=== PATIENT | male | born 1945 | race Caucasian/White ===

== ENCOUNTER 2017-03-21 14:24 | Emergency (ER) | payer MEDICARE ==
[~2017-03-21] VITALS: Ht 182.9 cm; Wt 88.8 kg
[~2017-03-21 14:24] MED LIST: MOEX15TA2 PO; PHEN100C PO; SIMV20TA3 PO; VANC1VIA3 PO
[2017-03-21] MEDS ORDERED: SODIUM CHLORIDE 0.9% 1,000 ML IV ONE (14:48)
[2017-03-21] MEDS ORDERED: KETOROLAC 30 MG/1 ML IVPush ONE (15:00)
[2017-03-21] MEDS ORDERED: SODIUM CHLORIDE FLUSH 10ML SYR IVF ONE (15:00)
[2017-03-21 15:20] LABS: BLOOD UREA NITROGEN 20 mg/dL (7-18)
[2017-03-21] MEDS ORDERED: KETOROLAC 30 MG/1 ML ONE (15:28)
[2017-03-21] MEDS ORDERED: SODIUM CHLORIDE 0.9%, 500ML IVBOLUS ONE (15:30)
[2017-03-21] MEDS ORDERED: DEXAMETHASONE 4 MG/ML, 5ML ONE (16:51)
[2017-03-21] MEDS ORDERED: DEXAMETHASONE 4 MG/ML, 1ML IVPush ONE (17:00)
[2017-03-21 17:16] VITALS: BP 138/71
== END 2017-03-21 17:18 | disposition home or self-care (01) ==
LOC: ED 16:27
DX: K11.21 Acute sialoadenitis (principal); I10 Essential (primary) hypertension; E78.00 Pure hypercholesterolemia, unspecified; G40.909 Epilepsy, unspecified, not intractable, without status epilepticus; E78.5 Hyperlipidemia, unspecified; Z85.46 Personal history of malignant neoplasm of prostate
CPT/HCPCS: 36415; 70490; 80048; 82040; 85025; 93005; 96361; 96374; 96375; 99285; J1100; J1885; J7030; J7040

== ENCOUNTER 2018-10-19 07:17 | Outpatient (CLI) | payer MEDICARE | END 2018-10-19 23:59 | disposition home or self-care (01) | LOC: RAD 07:17 | PROVIDERS: ATTEND Family Medicine | DX: I67.82 Cerebral ischemia (principal); I63.9 Cerebral infarction, unspecified; G93.89 Other specified disorders of brain; M79.662 Pain in left lower leg | CPT/HCPCS: 70551 ==

== ENCOUNTER → 2018-10-28 | Outpatient (CLI) | payer MEDICARE | END | disposition home or self-care (01) | LOC: CVU 06:42 | PROVIDERS: ATTEND Family Medicine | DX: M79.662 Pain in left lower leg (principal); R20.2 Paresthesia of skin; R20.0 Anesthesia of skin; I10 Essential (primary) hypertension; E78.5 Hyperlipidemia, unspecified; C61 Malignant neoplasm of prostate | CPT/HCPCS: 93922 ==

== ENCOUNTER 2018-12-28 11:48 | Emergency (ER) | payer MEDICARE ==
[~2018-12-28] VITALS: Ht 182.9 cm; Wt 87.0 kg
[2018-12-28 11:50] VITALS: BP 147/90
== END 2018-12-28 13:03 | disposition left against medical advice (07) ==
LOC: ED 12:57
DX: R42 Dizziness and giddiness (principal); Z53.21 Procedure and treatment not carried out due to patient leaving prior to being seen by health care provider

== ENCOUNTER 2019-02-02 08:42 | Outpatient (CLI) | payer MEDICARE ==
[2019-02-02] MEDS ORDERED: OMNIPAQUE 350 MG/ML, 100ML BOTTLE ONE (14:14)
== END 2019-02-02 23:59 | disposition home or self-care (01) ==
LOC: CFH 08:42
PROVIDERS: ATTEND Psychiatry & Neurology Neurology
DX: I65.23 Occlusion and stenosis of bilateral carotid arteries (principal); I67.2 Cerebral atherosclerosis; M50.322 Other cervical disc degeneration at C5-C6 level
CPT/HCPCS: 70496; 70498; 82565; Q9967

== ENCOUNTER 2019-08-11 05:45 | Observation (INO) | payer MEDICARE ==
[~2019-08-11] VITALS: Ht 185.4 cm; Wt 88.2 kg
[2019-08-11] MEDS ORDERED: MORPHINE SULFATE 4 MG/ML, 1ML ONE ×2 (06:26→09:33)
[2019-08-11] MEDS ORDERED: ONDANSETRON 2MG/ML, 2ML ONE (06:26)
[2019-08-11] MEDS ORDERED: ONDANSETRON 2MG/ML, 2ML IVPush ONE (06:30)
--- NOTE | 2019-08-11 06:46 | NUR ---
CT DELAY, NEED PAIN MED.
[2019-08-11] MEDS: MORPHINE SULFATE 4 MG/ML, 1ML IVPush PRN ×2 (06:54→09:37)
--- NOTE | 2019-08-11 06:59 | NUR ---
PT. MEDICATED PER MAR. MONITORS IN PLACE. CALL LIGHT IN REACH. AT BS. BS REPORT OT PAKO MAYEN.
--- NOTE | 2019-08-11 07:08 | NUR ---
CALLED CT TO INFORM THEM THAT PT. IS READY FOR CT.
--- NOTE | 2019-08-11 07:15 | NUR ---
ASSUMED CARE OF PT, PT WITH NO NEEDS REPORTED AT THIS TIME, VSS. Addendum: 08/11/19 at 0736 by JANNETH CALL TO IMAGING FROM NOC RN, PT TO GO TO CT
--- NOTE | 2019-08-11 07:57 | NUR ---
PT RETURNED FROM IMAGING, RESULTS BACK ERMD UPDATED LABS ARE STILL PENDING, PT GIVEN WATER PER REQUEST AFTER OK OF
[2019-08-11 07:58] LABS: BASOPHILS # (AUTO) 0.04 x10^3/uL (0-0.1); BASOPHILS % (AUTO) 1 % (0-1); EOSINOPHILS # (AUTO) 0.12 x10^3/uL (0-0.4); EOSINOPHILS % (AUTO) 1 % (1-7); LYMPHOCYTES # (AUTO) 0.93 x10^3/uL (1-3.4); LYMPHOCYTES % (AUTO) 12 % (22-44); MD NO; MEAN CORPUSCULAR HEMOGLOBIN 32.4 pg (27.5-34.5); MEAN CORPUSCULAR HGB CONC 33.1 g/dL (33.2-36.2); MEAN CORPUSCULAR VOLUME 97.8 fL (81-97); MEAN PLATELET VOLUME 8.3 fL (7.4-10.4); MONOCYTES # (AUTO) 0.57 x10^3/uL (0.2-0.8); MONOCYTES % (AUTO) 7 % (2-9); NEUTROPHILS # (AUTO) 6.34 x10^3/uL (1.8-6.8); NEUTROPHILS % (AUTO) 79 % (42-75); PLATELET COUNT 209 x10^3/uL (130-400); RED BLOOD COUNT 4.35 x10^6/uL (4.38-5.82)
[2019-08-11 08:08] LABS: ALANINE AMINOTRANSFERASE 17 U/L (12-78); ALBUMIN 3.9 g/dL (3.4-5.0); ANION GAP 5 mmol/L (5-15); CALCIUM 8.8 mg/dL (8.5-10.1); CHLORIDE 111 mmol/L (98-107)
[2019-08-11 08:11] LABS: ALKALINE PHOSPHATASE 122 U/L (45-117); BILIRUBIN,TOTAL 0.3 mg/dL (0.2-1.0); TOTAL PROTEIN 7.5 g/dL (6.4-8.2)
[2019-08-11] MEDS ORDERED: methylPREDNISolone SOD SUCC 125 MG/2 ML IVPush ONE (08:30)
[2019-08-11] MEDS ORDERED: methylPREDNISolone SOD SUCC 125 MG/2 ML ONE (08:30)
--- NOTE | 2019-08-11 09:07 | NUR ---
PSA ATTEMPTED TO ROADTEST PT, PT BEGAN TO LOG ROLL OUT OF BED AND C/O PAIN SHOOTING DOWN HIS HIP, WILL ATTEMPT IN ANOTHER 10MIN. ERMD UPDATED
--- NOTE | 2019-08-11 09:39 | NUR ---
PT MEDICATED WITH SECOND DOSE OF MORPHINE, SECOND TRIAL AT [facility] PT ABLE TO WITH COACHING ABLE TO GET OUT OF [facility], WALKS STEADY WITH FWW. ERMD UPDATED
--- NOTE | 2019-08-11 11:30 | NUR ---
PT CONCERNED THAT IF THEY ARE DISCHARGED SHE WILL FIND HER CRAWLING ON HANDS AND KNEES BECAUSE HIS PAIN HAS NOT BEEN RELEIVED, PT STATES HE DOES NOT WISH TO BE ADMITTED AND WOULD LIKE TO F/U WITH OUTPT SPINE MD. XOCHITL UPDATED ON STATUS
[2019-08-11] MEDS ORDERED: DEXTROSE 50%, 50ML SYRINGE IVPush ONE (12:00)
--- NOTE | 2019-08-11 12:18 | NUR ---
PT TO BE ADMITTED, AWAITING BED PLACEMENT.
[2019-08-11] MEDS ORDERED: BACLOFEN 10 MG TABLET PO PRN (13:00)
[2019-08-11] MEDS ORDERED: ONDANSETRON 2MG/ML, 2ML IVPush PRN (13:00)
[2019-08-11] MEDS ORDERED: ONDANSETRON ODT 4 MG PO PRN (13:00)
[2019-08-11] MEDS ORDERED: morphine SULFATE 10 MG/ML, 1ML IVPush PRN (13:00)
[2019-08-11] MEDS ORDERED: hydrALAzine 20 MG/ML, 1ML IVPush PRN (13:00)
[2019-08-11] MEDS ORDERED: NAPROXEN 250 MG TABLET PO SCH (13:00)
[2019-08-11] MEDS ORDERED: SIMVASTATIN 20 MG TABLET PO PRN (13:00)
[2019-08-11] MEDS ORDERED: ACETAMINOPHEN 325 MG TABLET PO PRN (13:00)
--- NOTE | 2019-08-11 13:00 | NUR ---
PT AMBULATED TO BR WITH FWW WITH SBA. BACK TO [facility], LUNCH TRAY ORDERED
[2019-08-11] MEDS ORDERED: LIDOCAINE-MPF 1%, 5ML ONE (13:48)
--- NOTE | 2019-08-11 13:50 | NUR ---
PT GIVEN LUNCH MEAL TRAY, VSS, NAD NOTED
--- NOTE | 2019-08-11 13:56 | NUR ---
REQUEST FOR MEDICATIONS SENT TO PHARMACY
[2019-08-11] MEDS ORDERED: LIDOCAINE 1%, 10ML INFIL ONE (14:00)
--- NOTE | 2019-08-11 14:00 | NUR ---
AT BEDSIDE PERFORMING TARGETED NERVE INJECTION WITH LIDOCAINE
[2019-08-11] MEDS: SODIUM CHLORIDE 0.9% 1,000 ML IV SCH ×2 (14:33→21:47)
[2019-08-11] MEDS: GABAPENTIN 100 MG CAPSULE PO SCH ×3 (14:33→21:00)
[2019-08-11] MEDS: LIDODERM 5% PATCH TD SCH ×2 (14:33→21:44)
--- NOTE | 2019-08-11 14:34 | NUR ---
BREAK RN FOR PRIMARY RN FAHEEM. PT MEDICATED NOTED PER MD ORDER WITH IVF. PT DENIES ANY PAIN, "THE DOCTOR JUST GAVE ME SOME LIDOCAINE INJECTIONS INTO MY HIP AND I'M FEELING GREAT, PAIN FREE." PT REFUSED GABAPENTIN AND LIDODERM PATCH "I DON'T NEED THEM RIGHT NOW, I WILL LET YOU KNOW IF I DO, I DON'T LIKE GABAPENTIN ANYWAYS." VSS. CALL LIGHT IN REACH. FALL PRECAUTIONS IN PLACE. SIDE RAILS UPX2. SPOUSE AT BEDSIDE. DENIES NEED TO USE RESTROOM.
--- NOTE | 2019-08-11 14:52 | NUR ---
BEDSIDE REPORT AND CARE BACK TO PRIMARY PAKO MAYEN
--- NOTE | 2019-08-11 15:46 | NUR ---
PT AMBULATING IN [place] WITH FWW C PER PT REQUEST
[2019-08-11] MEDS: METHYL SALICYLATE/MENTHOL CRM 85GM TP SCH ×2 (16:00→21:24)
--- NOTE | 2019-08-11 16:31 | NUR ---
REPORT CALLED TO RECIEVING RN
[2019-08-11] MEDS ORDERED: ENOXAPARIN 40 MG/0.4 ML SQ SCH (19:00)
[2019-08-11] MEDS: HEPARIN 5,000 UNITS/ML, 1ML SQ SCH (21:00)
[2019-08-11] MEDS ORDERED: MOEXIPRIL HCL 15 MG PO SCH (21:00)
[2019-08-11] MEDS: PHENYTOIN 100 MG CAPSULE HOMEMEDPO SCH (21:24)
[2019-08-11 21:37] VITALS: BP 170/85
[2019-08-12 03:40] VITALS: BP 133/89
[2019-08-12] MEDS: HEPARIN 5,000 UNITS/ML, 1ML SQ SCH ×3 (05:00→21:53)
[2019-08-12] MEDS: GABAPENTIN 100 MG CAPSULE PO SCH ×4 (06:00→21:53)
[2019-08-12] MEDS: SODIUM CHLORIDE 0.9% 1,000 ML IV SCH ×3 (06:09→22:00)
[2019-08-12 06:18] LABS: ANION GAP 7 mmol/L (5-15); CALCIUM 8.4 mg/dL (8.5-10.1); CHLORIDE 112 mmol/L (98-107); CREATININE 1.49 mg/dL (0.7-1.3)
[2019-08-12 08:45] LABS: MICROSCOPIC NOT IND
[2019-08-12 08:49] LABS: CULTURE INDICATED? NO
[2019-08-12] MEDS: METHYL SALICYLATE/MENTHOL CRM 85GM TP SCH ×3 (09:00→21:56)
[2019-08-12] MEDS: PHENYTOIN 100 MG CAPSULE HOMEMEDPO SCH ×2 (09:28→21:00)
[2019-08-12] MEDS: LIDODERM REMOVE PATCH NOTE XX SCH (09:32)
[2019-08-12 10:16] VITALS: BP 108/66
[2019-08-12 15:05] VITALS: BP 123/72
[2019-08-12 18:30] VITALS: BP 131/78
[2019-08-13 03:55] VITALS: BP 116/75
[2019-08-13] MEDS: HEPARIN 5,000 UNITS/ML, 1ML SQ SCH (05:25)
[2019-08-13] MEDS: GABAPENTIN 100 MG CAPSULE PO SCH (05:25)
[2019-08-13 05:32] LABS: ANION GAP 8 mmol/L (5-15); CALCIUM 8.4 mg/dL (8.5-10.1); CHLORIDE 112 mmol/L (98-107)
[2019-08-13] MEDS: SODIUM CHLORIDE 0.9% 1,000 ML IV SCH (05:46)
[2019-08-13] MEDS: METHYL SALICYLATE/MENTHOL CRM 85GM TP SCH (05:46)
[2019-08-13 05:51] LABS: BASOPHILS # (AUTO) 0.02 x10^3/uL (0-0.1); BASOPHILS % (AUTO) 0 % (0-1); EOSINOPHILS # (AUTO) 0.04 x10^3/uL (0-0.4); EOSINOPHILS % (AUTO) 1 % (1-7); LYMPHOCYTES # (AUTO) 1.24 x10^3/uL (1-3.4); LYMPHOCYTES % (AUTO) 20 % (22-44); MD NO; MEAN CORPUSCULAR HEMOGLOBIN 32.5 pg (27.5-34.5); MEAN CORPUSCULAR HGB CONC 32.5 g/dL (33.2-36.2); MEAN CORPUSCULAR VOLUME 100.1 fL (81-97); MEAN PLATELET VOLUME 8.3 fL (7.4-10.4); MONOCYTES # (AUTO) 0.44 x10^3/uL (0.2-0.8); MONOCYTES % (AUTO) 7 % (2-9); NEUTROPHILS # (AUTO) 4.33 x10^3/uL (1.8-6.8); NEUTROPHILS % (AUTO) 71 % (42-75); PLATELET COUNT 194 x10^3/uL (130-400); RED BLOOD COUNT 3.98 x10^6/uL (4.38-5.82); RED CELL DISTRIBUTION WIDTH 13.2 % (9.4-14.8)
[2019-08-13 06:35] VITALS: BP 101/61
[2019-08-13] MEDS: PHENYTOIN 100 MG CAPSULE HOMEMEDPO SCH (08:40)
[2019-08-13] MEDS: LIDODERM REMOVE PATCH NOTE XX SCH (09:44)
[2019-08-13] MEDS ORDERED: METH4TAB2 PO ×2 (12:28)
[2019-08-13] MEDS ORDERED: BACL20TA PO ×2 (12:28)
[2019-08-13] MEDS ORDERED: CYANOCOBALAMIN 1,000 MCG/ML, 1ML IM ONE (12:30)
[2019-08-15] MEDS ORDERED: PROP20TA PO (18:36)
[2019-08-15] MEDS ORDERED: ASPI-496 PO (19:36)
[2019-08-18] MEDS ORDERED: LIDO700A20 TD (12:40)
== END 2019-08-13 15:52 | disposition home or self-care (01) ==
LOC: ED 08:05 → INTOOBSV 12:23 → EDIP 12:23 → OBSVTOIN 12:54 → INTOOBSV 12:54 → 3N 16:42 → DCLOUNGE 08-13 10:42
PROVIDERS: ADMIT Family Medicine; ATTEND Family Medicine
DX: M54.16 Radiculopathy, lumbar region (principal); I12.9 Hypertensive chronic kidney disease with stage 1 through stage 4 chronic kidney disease, or unspecified chronic kidney disease; N18.9 Chronic kidney disease, unspecified; N17.9 Acute kidney failure, unspecified; K59.09 Other constipation; G40.909 Epilepsy, unspecified, not intractable, without status epilepticus; E78.5 Hyperlipidemia, unspecified; D75.89 Other specified diseases of blood and blood-forming organs; Z79.899 Other long term (current) drug therapy; E78.00 Pure hypercholesterolemia, unspecified
CPT/HCPCS: 36415; 72131; 73502; 80048; 80053; 81003; 82607; 85025; 96372; 96374; 96375; 96376; 97163; 99284; G0378; J1644; J2270; J2405; J2930; J7030; J7512

== ENCOUNTER 2020-03-19 07:11 | Inpatient (IN) | payer MEDICARE ==
[~2020-03-19] VITALS: Ht 180.3 cm; Wt 80.1 kg
[~2020-03-19 07:11] MED LIST changes: +ASPI-496 PO; +BACL20TA PO; +LIDO700A20 TD; +METH4TAB2 PO; +PROP20TA PO; +SIMV20TA19 PO; -SIMV20TA3 PO
--- NOTE | 2020-03-19 07:46 | NUR ---
THIS IS A 75 YO M W/ C/O ABD PAIN RADIATING UPWARDS, RT SIDED LOW BACK PAIN AND NAUSEA X1 WEEK. PT REPORTS PAIN IN CONSTANT BUT GETS SEVERE SPASMS INTERMITTENTLY. PS VSS, KERRYN. PT CONNECTED TO ALL MONITORING. PT RESTING ON GURNEY W/ CALL LIGHT IN REACH AND FAMILY AT BEDSIDE. MARCELO RUDOLPH AT BEDSIDE FOR ED EVAL.
[2020-03-19] MEDS ORDERED: ONDANSETRON 2MG/ML, 2ML ONE ×2 (07:54→16:40)
[2020-03-19] MEDS ORDERED: HYDROmorphone 1 MG/ML, 1ML INJ ONE ×2 (07:54→11:18)
[2020-03-19] MEDS ORDERED: SODIUM CHLORIDE FLUSH 10ML SYR IVF ONE (08:00)
[2020-03-19] MEDS ORDERED: HYDROmorphone 2 MG/ML, 1ML IVPush PRN (08:00)
[2020-03-19] MEDS ORDERED: ONDANSETRON 2MG/ML, 2ML IVPush ONE (08:00)
--- NOTE | 2020-03-19 08:00 | NUR ---
PT PROVIDED URINAL AND EDUCATED ON NEED FOR URINE SAMPLE.
--- NOTE | 2020-03-19 08:15 | NUR ---
PIV STARTED, LABS DRAWN, PT MEDICATED PER EMAR. PT RESTING ON GURNEY W/ CALL LIGHT IN REACH AND FAMILY AT BEDSIDE. JOSHUA CALDERÓN. AWAITING CT.
--- NOTE | 2020-03-19 08:16 | NUR ---
PT EDUCATED AGAIN ON NEED FOR URINE SAMPLE.
[2020-03-19 08:28] LABS: BASOPHILS # (AUTO) 0.02 x10^3/uL (0-0.1); BASOPHILS % (AUTO) 0 % (0-1); EOSINOPHILS # (AUTO) 0.09 x10^3/uL (0-0.4); EOSINOPHILS % (AUTO) 1 % (1-7); LYMPHOCYTES # (AUTO) 0.68 x10^3/uL (1-3.4); LYMPHOCYTES % (AUTO) 9 % (22-44); MD NO; MEAN CORPUSCULAR HEMOGLOBIN 31.6 pg (27.5-34.5); MEAN CORPUSCULAR HGB CONC 32.7 g/dL (33.2-36.2); MEAN PLATELET VOLUME 7.6 fL (7.4-10.4); MONOCYTES # (AUTO) 0.82 x10^3/uL (0.2-0.8); MONOCYTES % (AUTO) 10 % (2-9); NEUTROPHILS # (AUTO) 6.35 x10^3/uL (1.8-6.8); NEUTROPHILS % (AUTO) 80 % (42-75); PLATELET COUNT 342 x10^3/uL (130-400); RED BLOOD COUNT 3.67 x10^6/uL (4.38-5.82); RED CELL DISTRIBUTION WIDTH 12.5 % (9.4-14.8)
--- NOTE | 2020-03-19 08:30 | NUR ---
PT REPORTS RELIEF OF PAIN AFTER MEDS.
[2020-03-19 08:33] LABS: ALANINE AMINOTRANSFERASE 57 U/L (12-78); ALBUMIN 2.8 g/dL (3.4-5.0); ANION GAP 9 mmol/L (5-15); CHLORIDE 106 mmol/L (98-107); CREATININE 3.41 mg/dL (0.7-1.3)
[2020-03-19 08:35] LABS: ALKALINE PHOSPHATASE 131 U/L (45-117); BILIRUBIN,TOTAL 0.4 mg/dL (0.2-1.0); TOTAL PROTEIN 7.8 g/dL (6.4-8.2)
--- NOTE | 2020-03-19 09:10 | NUR ---
PT BACK FROM CT. ASKED PT AGAIN TO PROVIDE URINE SAMPLE. REQUESTED SPOUSE TO STEP OUT OF ROOM UNTIL URINE IS OBTAINED.
--- NOTE | 2020-03-19 09:16 | NUR ---
CHECK ON PT. PT STATES HE NEEDS MORE TIME TO PROVIDE URINE SAMPLE. WILL CHECK BACK IN 5 MINUTES.
--- NOTE | 2020-03-19 09:28 | NUR ---
PT STILL ATTEMPTING TO PROVIDE URINE SAMPLE. GIVEN 1 CUP OF WATER, OK PER MARCELO RUDOLPH. PT EDUCATED THAT STRAIGHT CATH URINE IS NEXT STEP IF UNABLE TO PROVIDE SAMPLE.
--- NOTE | 2020-03-19 09:47 | NUR ---
STRAIGHT CATH URINE OBTAINED W/O INCIDENT. 100ML OUT, NO BLOOD OBSERVED. PT RESTING ON GURNEY W/ CALL LIGHT IN REACH AND SPOUSE AT BEDSIDE. JOSHUA CALDERÓN.
[2020-03-19 10:10] LABS: MICROSCOPIC AUTO
--- NOTE | 2020-03-19 10:17 | NUR ---
ALL TESTS RESULTED. PT IS UP FOR RECHECK AT THIS TIME.
[2020-03-19] MEDS ORDERED: CEFTRIAXONE PMX 1GM/50ML 50 ML IV ONE (11:00)
[2020-03-19] MEDS ORDERED: SODIUM CHLORIDE 0.9% 1,000 ML IV ONE (11:04)
[2020-03-19] MEDS ORDERED: CEFTRIAXONE PMX 1GM/50ML 50 ML ONE (11:17)
[2020-03-19] MEDS ORDERED: SODIUM CHLORIDE FLUSH 10ML SYR IVF PRN (11:30)
[2020-03-19] MEDS ORDERED: HYDROmorphone 1 MG/ML, 1ML INJ IVPush PRN ×2 (11:30→16:30)
[2020-03-19] MEDS ORDERED: ONDANSETRON 2MG/ML, 2ML IVPush PRN ×2 (11:30→13:00)
--- NOTE | 2020-03-19 11:30 | NUR ---
PT MEDICATED PER EMAR FOR PAIN 03/03. UPDATED ON POC FOR ADMIT AND SURGERY. PT RESTING ON GURNEY W/ CALL LIGHT IN REACH AND FAMILY AT BEDSIDE. DENIES FURTHER NEEDS AT THIS TIME.
--- NOTE | 2020-03-19 11:52 | NUR ---
ATTEMPT TO CALL REPORT. RN UNAVAILABLE AND WILL CALL BACK.
--- NOTE | 2020-03-19 12:05 | NUR ---
REPORT GIVEN TO MAYELIN MIN. IVF INFUSING APPROPRIATELY. JOSHUA CALDERÓN. PT IS READY FOR TRANSPORT AT THIS TIME.
--- NOTE | 2020-03-19 12:15 | NUR ---
PER MARCELO RUDOLPH, PT HAS BEEN COVID SWABBED AND SAMPLE WALKED TO LAB. TELEPHONE CALL TO LAB. NO SPECIMEN WITH PTS LABEL ON IT. MARCELO RUDOLPH UPDATED AND REPORTS SHE WILL RESWAB PT PRIOR TO TRANSPORT.
[2020-03-19 12:48] VITALS: BP 134/80
[2020-03-19] MEDS ORDERED: SODIUM CHLORIDE 0.9% 1,000 ML IV SCH (12:51)
[2020-03-19] MEDS ORDERED: HYPR10DR EACHEYE (12:56)
[2020-03-19 12:59] VITALS: BP 134/80
[2020-03-19] MEDS ORDERED: ACETAMINOPHEN 325 MG TABLET PO PRN (13:00)
[2020-03-19] MEDS: TAMSULOSIN 0.4 MG CAP.ER.24H PO SCH (13:00)
[2020-03-19] MEDS ORDERED: OXYcodone IR 5MG TABLET PO PRN (13:00)
[2020-03-19] MEDS ORDERED: hydrALAzine 20 MG/ML, 1ML IVPush PRN (13:00)
[2020-03-19] MEDS ORDERED: morphine SULFATE 10 MG/ML, 1ML IVPush PRN (13:00)
[2020-03-19] MEDS ORDERED: FENTANYL PF 100 MCG/2ML ONE (16:09)
[2020-03-19] MEDS ORDERED: FENTANYL PF 100 MCG/2ML IV PRN (16:30)
[2020-03-19] MEDS ORDERED: HYDROcodone/APAP 7.5-325MG/15ML UDC PO PRN (16:30)
[2020-03-19] MEDS ORDERED: OXYcodone 5 MG/5 ML ORAL.SOL UDC PO PRN (16:30)
[2020-03-19] MEDS ORDERED: PROMETHAZINE 25 MG/ML, 1ML IVPush PRN (16:30)
[2020-03-19] MEDS ORDERED: CEFAZOLIN 1,000 MG ONE (16:40)
[2020-03-19] MEDS ORDERED: PROPOFOL 10 MG/ML, 20ML ONE (16:40)
[2020-03-19] MEDS ORDERED: DEXAMETHASONE 4 MG/ML, 1ML ONE (16:40)
[2020-03-19] MEDS ORDERED: EPHEDRINE 50 MG/ML, 1ML ONE (16:46)
[2020-03-19] MEDS ORDERED: LIDOCAINE-MPF 2% ,5ML ONE (16:46)
[2020-03-19 19:24] VITALS: BP 112/68
[2020-03-19] MEDS: PHENYTOIN 100 MG CAPSULE PO SCH (20:00)
[2020-03-19] MEDS: HYPROMELLOSE HOMEOPHTH SCH (20:01)
[2020-03-19] MEDS ORDERED: SIMVASTATIN 20 MG TABLET PO PRN (21:00)
[2020-03-19] MEDS ORDERED: PROPRANOLOL 10 MG TABLET PO SCH (21:00)
[2020-03-19 23:48] VITALS: BP 97/54
[2020-03-20 03:47] VITALS: BP 95/53
[2020-03-20 05:41] LABS: BASOPHILS # (AUTO) 0.03 x10^3/uL (0-0.1); BASOPHILS % (AUTO) 1 % (0-1); EOSINOPHILS # (AUTO) 0.11 x10^3/uL (0-0.4); EOSINOPHILS % (AUTO) 2 % (1-7); LYMPHOCYTES # (AUTO) 1.15 x10^3/uL (1-3.4); LYMPHOCYTES % (AUTO) 21 % (22-44); MD NO; MEAN CORPUSCULAR HEMOGLOBIN 31.5 pg (27.5-34.5); MEAN CORPUSCULAR HGB CONC 32.6 g/dL (33.2-36.2); MEAN PLATELET VOLUME 7.5 fL (7.4-10.4); MONOCYTES # (AUTO) 0.65 x10^3/uL (0.2-0.8); MONOCYTES % (AUTO) 12 % (2-9); NEUTROPHILS # (AUTO) 3.66 x10^3/uL (1.8-6.8); NEUTROPHILS % (AUTO) 66 % (42-75); PLATELET COUNT 304 x10^3/uL (130-400); RED BLOOD COUNT 3.16 x10^6/uL (4.38-5.82); RED CELL DISTRIBUTION WIDTH 12.1 % (9.4-14.8)
[2020-03-20 05:45] LABS: CHLORIDE 109 mmol/L (98-107)
[2020-03-20 05:50] LABS: ANION GAP 9 mmol/L (5-15); CALCIUM 8.6 mg/dL (8.5-10.1); CREATININE 2.73 mg/dL (0.7-1.3)
[2020-03-20] MEDS ORDERED: ASPIRIN 81 MG TABLET EC PO SCH (06:00)
[2020-03-20 06:52] VITALS: BP 122/67
[2020-03-20] MEDS ORDERED: TAMS-11 PO (08:35)
[2020-03-20] MEDS ORDERED: SENNA/DOCUSATE TABLET ONE ×2 (08:55)
[2020-03-20] MEDS: TAMSULOSIN 0.4 MG CAP.ER.24H PO SCH (08:58)
[2020-03-20] MEDS: HYPROMELLOSE HOMEOPHTH SCH (08:59)
[2020-03-20] MEDS: PHENYTOIN 100 MG CAPSULE PO SCH (08:59)
[2020-03-20] MEDS ORDERED: SENNA/DOCUSATE TABLET PO SCH ×2 (10:00→13:00)
== END 2020-03-20 10:58 | disposition home or self-care (01) | DRG 660 ==
LOC: ED 07:46 → 4NE 12:25 → SUATTDRO 12:36 → ED 12:49 → 4NE 12:50 → DCLOUNGE 03-20 10:50
PROVIDERS: ADMIT Internal Medicine; ATTEND Hospitalist
PROC: 0T768DZ Dilation of Right Ureter with Intraluminal Device, Via Natural or Artificial Opening Endoscopic (ICD-10-PCS; principal; 2020-03-19 15:30)
DX: N13.2 Hydronephrosis with renal and ureteral calculous obstruction (principal); E87.1 Hypo-osmolality and hyponatremia; E87.2 Acidosis; K56.7 Ileus, unspecified; D64.9 Anemia, unspecified; N17.9 Acute kidney failure, unspecified; E78.5 Hyperlipidemia, unspecified; G40.909 Epilepsy, unspecified, not intractable, without status epilepticus; I12.9 Hypertensive chronic kidney disease with stage 1 through stage 4 chronic kidney disease, or unspecified chronic kidney disease; M48.00 Spinal stenosis, site unspecified; N18.3 Chronic kidney disease, stage 3 (moderate); N13.1 Hydronephrosis with ureteral stricture, not elsewhere classified; N28.1 Cyst of kidney, acquired; K59.00 Constipation, unspecified; Z85.46 Personal history of malignant neoplasm of prostate; Z87.442 Personal history of urinary calculi; Z88.1 Allergy status to other antibiotic agents; Z88.2 Allergy status to sulfonamides; Z20.828 Contact with and (suspected) exposure to other viral communicable diseases; Z82.49 Family history of ischemic heart disease and other diseases of the circulatory system; Z88.0 Allergy status to penicillin; Z79.82 Long term (current) use of aspirin
CPT/HCPCS: 36415; 74018; 74176; 76000; 80048; 80053; 81001; 83690; 85025; 87635; 93005; 96365; 96375; 96376; G0378; J0690; J0696; J1100; J1170; J2405; J2704; J3010; C2617; J2270; J7030